=== PATIENT | male | born 1990 | race African-American/Black ===

== ENCOUNTER 2017-01-04 09:19 | Emergency (ER) | payer OTHER ==
[~2017-01-04] VITALS: Ht 195.6 cm; Wt 72.6 kg
[2017-01-04 09:25] VITALS: BP 123/73
[2017-01-04] MEDS ORDERED: TRAM50TA PO (09:31)
[2017-01-04] MEDS ORDERED: AMOX500T PO (09:31)
--- NOTE | 2017-01-04 09:32 | PHYS DOC ---
Adult General Chief Complaint Chief Complaint: DENTAL PROBLEM HPI HPI Patient is a 26 year old male presents to the ED complaining of swelling to left lower face and dental pain x 3 days. States he has had a rotten tooth for a while now but the swelling and pain worsened over the last 3 days. States he is making an appointment to get his tooth pulled. Denies trauma, fevers, nausea/ vomiting, headache and difficulty swallowing, chest pain or shortness of breath. Review of Systems Review of Systems Constitutional: Denies fever or chills [] Eyes: Denies change in visual acuity, redness, or eye pain [] HENT: Denies nasal congestion or sore throat [] Respiratory: Denies cough or shortness of breath [] Cardiovascular: No additional information not addressed in HPI [] GI: Denies abdominal pain, nausea, vomiting, bloody stools or diarrhea [] : Denies dysuria or hematuria [] Musculoskeletal: Denies back pain or joint pain [] Integument: Denies rash or skin lesions [] Neurologic: Denies headache, focal weakness or sensory changes [] Endocrine: Denies polyuria or polydipsia [] Allergies Allergies Allergies Coded Allergies Type Severity Reaction Last Updated Verified Iodine and Iodide Containing Produc Allergy Intermediate 01/04/17 Yes ethambutol Allergy Intermediate 01/04/17 Yes Physical Exam Physical Exam Constitutional: Well developed, well nourished, no acute distress, non-toxic appearance. [] HENT: Left lower dental avulsion, Mild erythema and poor dentition throughout. Normocephalic, atraumatic, bilateral external ears normal, oropharynx moist, no oral exudates, nose normal. [] Eyes: PERRLA, EOMI, conjunctiva normal, no discharge. [] Neck: Normal range of motion, no tenderness, supple, no stridor. [] Cardiovascular:Heart rate regular rhythm, no murmur [] Lungs & Thorax: Bilateral breath sounds clear to auscultation [] Abdomen: Bowel sounds normal, soft, no tenderness, no masses, no pulsatile masses. [] Skin: Warm, dry, no erythema, no rash. [] Back: No tenderness, no CVA tenderness. [] Extremities: No tenderness, no cyanosis, no clubbing, ROM intact, no edema. [] Neurologic: Alert and oriented X 3, normal motor function, normal sensory function, no focal deficits noted. [] Psychologic: Affect normal, judgement normal, mood normal. [] Current Patient Data Vital Signs Vital Signs Date Time Temp Pulse Resp B/P (MAP) Pulse Ox O2 Delivery O2 Flow Rate FiO2 01/04/17 09:25 98.0 80 18 123/73 (90) 100 Room Air 98.0 EKG EKG [] Radiology/Procedures Radiology/Procedures [] Course & Med Decision Making Course & Med Decision Making Pertinent Labs and Imaging studies reviewed. (See chart for details) []No drainable abscess or dental emergency. Patient tolerating by mouth. Discussed follow up with dentist in 3-5 days for further evaluation of dental problem. Provided dental clinic resources handout. Patient given amoxicillin and analgesics for pain control. Discussed the importance of follow-up and reasons to return to the ED. Patient understands and agrees with plan. Dragon Disclaimer Dragon Disclaimer This electronic medical record was generated, in whole or in part, using a voice recognition dictation system. Departure Departure Impression: Primary Impression: Dental caries Additional Impression: Pain, dental Disposition: 01 HOME, SELF-CARE Condition: STABLE Referrals: DENTAL CLINIC RESOURCE HANDOUT Patient Instructions: Dental Abscess, Dental Caries Scripts Tramadol Hcl (TRAMADOL HCL) 50 Mg Tablet 1 TAB PO PRN Q6HRS, #10 TAB Prov: LEILA WAGNER 01/04/17 Amoxicillin (AMOXICILLIN) 500 Mg Tablet 1 TAB PO TID, #30 TAB Prov: LEILA WAGNER 01/04/17 Problem Qualifiers LEILA WAGNER Jan 04, 2017 09:31
== END 2017-01-04 09:45 | disposition home or self-care (01) ==
LOC: ER 09:19
DX: K02.9 Dental caries, unspecified (principal); Z88.8 Allergy status to other drugs, medicaments and biological substances; Z91.041 Radiographic dye allergy status
CPT/HCPCS: 99283

== ENCOUNTER 2017-04-29 09:33 | Emergency (ER) | payer OTHER | END 2017-04-29 11:20 | disposition home or self-care (01) | LOC: ER 09:33 | DX: K04.7 Periapical abscess without sinus (principal); F12.10 Cannabis abuse, uncomplicated; Z88.8 Allergy status to other drugs, medicaments and biological substances; Z91.041 Radiographic dye allergy status | CPT/HCPCS: 70450; 70486; 99284-25 ==